=== PATIENT | female | born 1960 | race Caucasian/White ===

== ENCOUNTER 2016-12-07 16:58 | Inpatient (IN) | payer BC, OTHER ==
[~2016-12-07] VITALS: Ht 157.5 cm; Wt 77.1 kg
--- NOTE | 2016-12-07 18:00 | NUR ---
PREADMISSION NOTE 56 year old female admitted for ETOH dependence. Brought to unit at 1800. Allergy to PCN, reaction of rash. Drinks Vodka 16 oz per day for last 1.5 months, 2 beers a day x 1.5 months, daily drinker, drinking ETOH since age 12. Last detox September 17/2017, stayed 30 days. Blood pressure 109/59, pulse 103, RR 16, O2 sat 99 percent. No medical history. Surgical history of x 2, hysterectomy with ovaries removed, breast plastic surgery, deviated septum surgery of nose, gastric sleeve, tummy tuck. Psychiatric history of Depression and Anxiety x [address] Joaquín David, last seen 1 month ago. Home medications Atrovastatin, Lisinopril, Diazepam, Lexapro. No seizure history. Oriented to unit. Bed in low position, side rails up x 2, call rick in reach. 1900, report given to night RN.
[2016-12-07 18:34] LABS: *AMPHETAMINE, URINE NEGATIVE (NEGATIVE); *BARBITURATE, URINE NEGATIVE (NEGATIVE); *CANNABINOID, URINE NEGATIVE (NEGATIVE); *COCCAINE, URINE NEGATIVE (NEGATIVE); *OPIATE, URINE NEGATIVE (NEGATIVE); *PHENCYCLIDINE SCREEN,URINE NEGATIVE (NEGATIVE)
[2016-12-07 19:43] LABS: *URINE HCG, QUAL NEGATIVE (NEGATIVE)
[2016-12-07 20:00] VITALS: BP 117/62
--- NOTE | 2016-12-07 20:00 | NUR ---
Admission Notes Admitted a 56 y/o female in [facility] [place] Unit for ETOH dependence at approximately 1800H 12/07/2016. Body search done by PATTI Maddox, no contraband found. Skin is intact. Px is 5' 2" tall weighing at 170 lbs. on standing scale. Px is oriented on the floor unit and room. Px follows regular diet, allergic to penicillin, and on Full code status. Px is A&Ox4, ambulatory, with steady gait. Speech is clear and audible. Px appears to be anxious and depressed but cooperative. No SOB noted. Respirations are even and unlabored. Abdomen is soft and not distended. Last BM is 12/07/2016 in AM. Bowel sounds are active on all 4 quadrants. No N/V nor pain as of the moment. Px reported PMHx of anxiety, depression, thoughts of suicide 2weeks ago but no attempts made nor suicide thoughts at the moment. Had post surgical operations, 2 C-sections, tummy tuck, gastric sleeve, hysterectomy with oophorectomy, deviated septum surgery, and plastic surgery on breasts. Px able to provide urine for drug screen. CIWA 3 at 2000H. BG=651/62, NJ= 75, RR= 16, T= 98.3, O2sat= 98. Substance Abuse: 1. ETOH- px has been drinking Vodka for 14 years, Beer for 4 years. Px has been drinking 16 oz of Vodka and 4 bottles of beer daily for 1.5 months. Last drink is 12/07/2016 . Treatment Hx: 1. [facility] 4x but cant recall the dates 2. [facility] 3x, last was September 14, 2016 Px denies hospitalization for the past 30 days. Px longest sobriety is 9 months in 10 years. Px reports depression and heightened anxiety if she is not drinking. Px is non-smoker. Px refuses pneumonia vaccine, due to that she already received it this year but cant recall the date. Px's psychiatrist is Dr. Joaquín Martínez, and PCP is Dr. Yeh in [facility]. ETOH reveals 0.18 levels in labs. All needs attended. Fall and seizure precaution are in place. Both side rails up. Call light within reach. Well continue to monitor.
[2016-12-07 20:03] LABS: BASOPHILS # (AUTO) 0.1 K/uL (0.0-8.0); BASOPHILS % (AUTO) 1.2 % (0.0-2.0); EOSINOPHILS # (AUTO) 0.1 K/uL (0.0-0.7); EOSINOPHILS % (AUTO) 1.6 % (0.0-7.0); HEMATOCRIT 45.5 % (37-47); LYMPHOCYTES # (AUTO) 2.6 K/UL (0.8-4.8); LYMPHOCYTES % (AUTO) 48.6 % (20.5-51.5); MEAN CORPUSCULAR HEMOGLOBIN 31.7 UUG (27.0-31.0); MEAN CORPUSCULAR HGB CONC 33 g/dL (32.0-37.0); MEAN CORPUSCULAR VOLUME 96.1 FL (81.0-99.0); MONOCYTES # (AUTO) 0.4 K/UL (0.1-1.30); MONOCYTES % (AUTO) 6.4 % (0.0-11.0); NEUTROPHILS # (AUTO) 2.3 K/UL (1.8-8.9); NEUTROPHILS % (AUTO) 42.2 % (38.5-71.5); PLATELET COUNT (AUTO) 310 K/UL (150-450); RED BLOOD CELL COUNT(AUTO) 4.73 MIL/UL (4.2-5.4); WHITE BLOOD COUNT (AUTO) 5.5 K/UL (4.0-11.2)
[2016-12-07 20:20] LABS: BILIRUBIN,TOTAL 0.5 mg/dL (0.2-1.0); CREATININE 0.9 mg/dL (0.6-1.3); POTASSIUM 4.2 mmol/L (3.5-5.1); TOTAL PROTEIN, SERUM 7.3 g/dL (6.4-8.2)
[2016-12-08] VITALS: BP 120/63
[2016-12-08] MEDS ORDERED: LISI-603 PO (03:04)
[2016-12-08] MEDS ORDERED: DIAZ5TAB4 PO (03:04)
[2016-12-08] MEDS ORDERED: ATOR80TA PO (03:07)
[2016-12-08 04:00] VITALS: BP 118/60
--- NOTE | 2016-12-08 04:00 | NUR ---
CIWA deferred Px was sleeping at 0000 and 0400, CIWA assessment deferred, to assess if the px is awake per doctor's order. We'll continue to monitor.
--- NOTE | 2016-12-08 07:25 | NUR ---
End of Shift Notes A 56 y/o female admitted 12/07/2016 for ETOH dependence. Px follows regular diet, allergic to penicillin, and on Full code status. Px is A&Ox4, ambulatory, with steady gait. During the shift. No SOB noted. Respirations are even and unlabored. No N/V nor pain. Px appears to be anxious and depressed but cooperative. Oral intake of 1,100 ml, voided 3x, no BM. Slept for 9 hrs. Last CIWA 3. All needs attended. Fall and seizure precaution are in place. Both side rails up. Call light within reach. We'll continue to monitor.
--- NOTE | 2016-12-08 07:45 | NUR ---
BEGINNING OF SHIFT Patient is a 56 year old Female, with admitting Dx: etoh Dependence. Patient with past medical history of: Anxiety, depression, HTN, dyslipidemia, plastic surgeries, deviated septum surgery, hysterectomy, and oophorectomy. Patient received no PRNs during scene shifter. . Fall and seizure precautions in place. Patient skin is intact. Per scene shifter patient slept for 9 hours, Patient with last ciwa score of: 3. Patient is scheduled to begin a 4 day valium taper as ordered, and is scheduled to begin day 1 of taper. Patient received in bed awake, alert and oriented x4, educated patient regarding plan of care for the day and medication regimen with good verbal understanding. Safety measures in place. call light kept with in reach, will continue to monitor closely.
[2016-12-08 08:27] VITALS: BP 159/72
[2016-12-08 12:35] VITALS: BP 146/68
[2016-12-08 16:00] VITALS: BP 139/61
--- NOTE | 2016-12-08 17:01 | NUR ---
PRN MOTRIN Patient c/o back ache 09/20, provided with non pharmacological interventions with no relief, administered Motrin as ordered PO, will monitor effectiveness of medication.
--- NOTE | 2016-12-08 18:01 | NUR ---
MOTRIN REASSESSMENT Patient reports medication effective, current pain level 0/10, will continue to monitor.
--- NOTE | 2016-12-08 18:59 | NUR ---
END OF SHIFT Patient alert and oriented x4, patient compliant with therapeutic plan of care. vital signs were stable during shift. Patient continues on Valium taper as ordered and is currently on day 1 of taper, well tolerated, no ASE noted. Patient with admitting Dx: etoh dependence. During shift patient administered PPD as ordered to left f/a, well tolerated. 0900 assessment presented with: mild nausea, tremors that can be felt but not seen, barely sweating, restlessness, and anxiety; 1300 assessment patient presented with: tremors that can be felt but not seen, barely seating, mild restlessness, and anxiety with ciwa score of: 9; 1700 assessment patient presented with tremors that can be felt but not seen, barely sweating, and anxiety with ciwa score of: 4. Detox medication effective at reducing withdrawal symptom. Patient was administered PRN:Motrin as ordered, medication effective one hour post administration. Patient was encouraged to increase PO fluid intake as tolerated. Patient denies SI/HI. MD is aware of patients current status, continues under close observation. Patient endorsed to director electrical engineering nurse, all pertinent information discussed.
[2016-12-08 20:00] VITALS: BP 119/62
--- NOTE | 2016-12-08 20:00 | NUR ---
Start of Shift Notes Received a 56 y/o female admitted 12/07/2016 for ETOH dependence. Px follows regular diet, allergic to penicillin, and on Full code status. Px is A&Ox4, ambulatory, with steady gait. On 4 day Valium taper. During rounds at 2000, No SOB noted. Respirations are even and unlabored. No N/V nor pain. No complaints at the moment. CIWA 3. All needs attended. Fall and seizure precaution are in place. Both side rails up. Call light within reach. We'll continue to monitor.
[2016-12-09] VITALS: BP 121/68
[2016-12-09 04:00] VITALS: BP 139/66
--- NOTE | 2016-12-09 04:00 | NUR ---
CIWA deferred CIWA assessment deferred due to the px is sleeping, to assess if the px is awake per doctor's order. We'll continue to monitor.
[2016-12-09 06:06] LABS: HEPATITIS B SURFACE AG Negative (Negative)
--- NOTE | 2016-12-09 07:12 | NUR ---
End of Shift Notes A 56 y/o female admitted 12/07/2016 for ETOH dependence. Px follows regular diet, allergic to penicillin, and on Full code status. Px is A&Ox4, ambulatory, with steady gait. During the shift, No SOB noted. Respirations are even and unlabored. No N/V nor pain. Oral intake of 1,600 ml, voided 3x, No BM. Slept for 8 hrs. All needs attended. Fall and seizure precaution are in place. Both side rails up. Call light within reach. We'll continue to monitor.
[2016-12-09 08:00] VITALS: BP 144/65
--- NOTE | 2016-12-09 09:00 | NUR ---
START OF SHIFT Received report from milk drying machine operator nurse. Patient is 56 year old female admitted for medically supervised withdrawal from alcohol. Patient is full code with allergy to penicillin. On 5-Day valium taper. Patient is alert and oriented X4. On assessment this AM: CIWA: 2. Denies SOB, chest pain. Vitals signs WNL. Reports anxiety. Denies sweating, body ache/headache, nausea, vomiting, stomach cramping, tremors, tactile disturbance, auditory/visual hallucinations. Med compliant with AM meds. Tolerating breakfast without n/v at this time. Patient was encouraged to attend group meetings today. Will continue to monitor patient.
[2016-12-09 12:00] VITALS: BP 151/74
--- NOTE | 2016-12-09 12:48 | NUR ---
PRN CLONIDINE Patient's BP: 151/74 (HR 67). PRN clonidine given. Will continue to monitor patient.
--- NOTE | 2016-12-09 13:48 | NUR ---
REASSESSMENT PRN CLONIDINE Patient's BP 128/73, HR 74, med effective.
[2016-12-09 16:00] VITALS: BP 117/65
--- NOTE | 2016-12-09 18:56 | NUR ---
END OF SHIFT Patient is 56 year old female admitted for medically supervised withdrawal from alcohol. Patient is full code with allergy to penicillin. On 5-Day valium taper. Patient is alert and oriented X4. Most recent CIWA:1. Patient reports anxiety. Compliant with routine meds during this shift. PRN clonidine given for elevated BP (151/74), recheck 128/73, HR 74, effective. Patient tolerating meals without. n/v. Patient attended group activities. warehouse shift supervisor RN will continue to monitor patient.
[2016-12-09 20:00] VITALS: BP 106/48
--- NOTE | 2016-12-09 20:00 | NUR ---
Start of Shift Patient is a 56-year old, female, admitted for ETOH dependence. Pt is allergic to Penicillin, on Regular Diet and is Full Code. With history of Anxiety, Depression, Hyperlipidemia, Hypertension, , Gastric Sleeve, Hysterectomy and Tummy Tuck. Pt is AAOx4 and with slight anxiety at this time. Pt is ambulatory with steady gait and with no skin issues. Pt started on 4-day Valium taper on 12/08/2016.No adverse reactions observed. No SOB noted, not in respi distress. Fall, universal, seizure and safety prec in place. Call light within reach. Latest CIWA=3. Will continue to monitor.
[2016-12-10] VITALS: BP 91/56
[2016-12-10 04:00] VITALS: BP 100/62
--- NOTE | 2016-12-10 07:07 | NUR ---
End of Shift Patient is a 56-year old, female, admitted for ETOH dependence. Pt is allergic to Penicillin, on Regular Diet and is Full Code. With history of Anxiety, Depression, Hyperlipidemia, Hypertension, , Gastric Sleeve, Hysterectomy and Tummy Tuck. Pt is AAOx4 and with slight anxiety at this time. Pt is ambulatory with steady gait and with no skin issues. Pt started on 4-day Valium taper on 12/08/2016.No adverse reactions observed. No SOB noted, not in respi distress. Fall, universal, seizure and safety prec in place. Call light within reach. Latest CIWA=2, slept for 7 hours. Endorsed to AM shift nurse for continuity of care.
--- NOTE | 2016-12-10 07:30 | NUR ---
Start of shift note; Received report from night nurse. Patient is a56 year old female admitted on 12/07/16 for ETOH dependence. Patient was placed on a 4 day Valium taper , no adverse reactions noted. Patient reported anxiety, hypertension, gastric sleeve. Patient is on full code, regular diet, allergic to penicillin. Patient is on fall and seizure precaution. Will continue to monitor patient.
[2016-12-10 08:00] VITALS: BP 118/61
[2016-12-10 12:00] VITALS: BP 109/63
[2016-12-10 16:00] VITALS: BP 100/62
--- NOTE | 2016-12-10 18:26 | NUR ---
End of shift note; Patient is AOX4. Patient is a 56 year old female admitted on 12/07/16 for ETOH dependence. Patient was placed on a 4 day Valium taper , no adverse reactions noted. Patient reported anxiety, hypertension, gastric sleeve. Patient is on full code, regular diet, allergic to penicillin. Patient is on fall and seizure precaution. Patient remained compliant with treatment plan and medication regime. Medications were effective in reducing withdrawal symptoms. Met all needs.
[2016-12-10 20:00] VITALS: BP 97/56
--- NOTE | 2016-12-10 20:00 | NUR ---
Start of Shift Patient is a 56-year old, female, admitted for ETOH dependence. Pt is allergic to Penicillin, on Regular Diet and is Full Code. With history of Anxiety, Depression, Hyperlipidemia, Hypertension, , Gastric Sleeve, Hysterectomy and Tummy Tuck. Pt is AAOx4 and with slight anxiety at this time. Pt is ambulatory with steady gait and with no skin issues. Pt started on 4-day Valium taper on 12/08/2016.No adverse reactions observed. No SOB noted, not in respi distress. Fall, universal, seizure and safety prec in place. Call light within reach. Latest CIWA=4. Will continue to monitor.
[2016-12-11] VITALS: BP 102/58
[2016-12-11 04:00] VITALS: BP 106/65
--- NOTE | 2016-12-11 07:07 | NUR ---
End of Shift Patient is a 56-year old, female, admitted for ETOH dependence. Pt is allergic to Penicillin, on Regular Diet and is Full Code. With history of Anxiety, Depression, Hyperlipidemia, Hypertension, , Gastric Sleeve, Hysterectomy and Tummy Tuck. Pt is AAOx4 and with slight anxiety at this time. Pt is ambulatory with steady gait and with no skin issues. Pt started on 4-day Valium taper on 12/08/2016.No adverse reactions observed. No SOB noted, not in respi distress. Fall, universal, seizure and safety prec in place. Call light within reach. Latest CIWA=3, slept for 9 hours. Endorsed to AM shift nurse for continuity of care.
--- NOTE | 2016-12-11 07:10 | NUR ---
Start of shift note SBAR report rcv'd. Pt was admitted for ETOH dependence. Pt has a PMHx of anxiety, depression, HTN, dyslipidemia, and multiple surgeries. Pt is a full code, on a regular diet, is allergic to PCN. Pt is on day 3 of a 4 day valium taper. Pt has no complaints at this time. Will continue to monitor pt. All needs addressed at this time.
[2016-12-11 08:00] VITALS: BP 109/71
--- NOTE | 2016-12-11 08:05 | NUR ---
PRN administration, medication refusal Pt states that she has a headache 06/21, administered PRN motrin per MD order. Pt refused norvasc, states "it makes me feel weird". Medication held. Will continue to monitor pt.
--- NOTE | 2016-12-11 09:05 | NUR ---
Reassessment Pt states that the motrin was effective in alleviating her headache. Will continue to monitor pt.
[2016-12-11 12:00] VITALS: BP 114/60
--- NOTE | 2016-12-11 14:28 | NUR ---
Endorsement Pt endorsed to RN. Pt has no complaints at this time.
--- NOTE | 2016-12-11 14:28 | NUR ---
ENDORSEMENT Pt endorsed to me by nurse. All information received.
[2016-12-11 16:55] VITALS: BP 117/62
--- NOTE | 2016-12-11 18:30 | NUR ---
END OF SHIFT Pt 56 y/o female admitted for etoh dependence. Pt alert and oriented to name, place,and time. Perrla. Skin warm and slightly moist to touch. Respirations even and unlabored. Pt observed mostly in room throughout the day. Pt attended group activity. Pt was seen by MD today. Pt medication compliant and tolerated well. No ASE noted. Bed on lowest position with side rails x2 up for safety. Call light within reach. No distress noted at this time.
--- NOTE | 2016-12-11 19:10 | NUR ---
Start of shift note Received report from day shift nurse. Pt is a 56 yo female, A+Ox4, presenting to [facility] for ETOH dependence. Pt has Allergies to PCN, is on Full Code status, and on Regular diet. Pt is on Fall and Seizure precautions. Pt has HX of HTN, multiple cosmetic SX's, and Hysterectomy. Pt is on 5 day Valium taper, tolerated well. No s/s of distress noted at this time. Respirations even and unlabored. Will continue to monitor. Addendum: 12/12/16 at 0703 by FRED JOEL LVN 4 day Valium taper
[2016-12-11 20:19] VITALS: BP 117/62
--- NOTE | 2016-12-12 00:10 | NUR ---
PRN Motrin Pt c/o general body pain 5/10 and requested for PRN Motrin. Medication given and tolerated well. Will reassess within 1 HR. Will continue to monitor.
[2016-12-12 00:57] VITALS: BP 115/68
--- NOTE | 2016-12-12 01:05 | NUR ---
PRN Motrin Reassessment Medication effective. Pain reduced to 2/10. No s/s of ASE/distress noted at this time. Respirations even and unlabored. Will continue to monitor.
[2016-12-12 04:01] VITALS: BP 118/72
--- NOTE | 2016-12-12 06:59 | NUR ---
End of shift note Pt is a 56 yo female, A+Ox4, presenting to [facility] for ETOH dependence. Pt has Allergies to PCN, is on Full Code status, and on Regular diet. Pt is on Fall and Seizure precautions. Pt has HX of HTN, multiple cosmetic SX's, and Hysterectomy. Pt is on 5 day Valium taper, tolerated well. Pt was given PRN Motrin @0010. Pt slept for a total of 8 HRS. Last CIWA: 2 @0400. No s/s of distress noted at this time. Respirations even and unlabored. Will endorse to day shift nurse. Addendum: 12/12/16 at 0703 by FRED JOEL LVN 4 day Valium taper
--- NOTE | 2016-12-12 07:47 | NUR ---
START OF SHIFT NOTE Received report from night nurse,56 year old female admitted for ETOH dependence. Pt reported PMH of 2 C-sections, tummy tuck, gastric sleeve, hysterectomy with oophorectomy, deviated septum surgery, and plastic surgery on breasts, HTN. Per endorsement pt received PRN Motrin effective per night nurse, slept for 8 hours, Last CIWA was 2. Received pt in bed awake, alert and oriented x4, educated patient regarding plan of care for the day and medication regimen with good verbal understanding. Safety measures in place. call light kept with in reach, will continue to monitor.
[2016-12-12 08:00] VITALS: BP 138/71
[2016-12-12 12:00] VITALS: BP 134/60
[2016-12-12] MEDS ORDERED: LISI-603 PO (15:27)
[2016-12-12] MEDS ORDERED: DIPH50CA37 PO (15:27)
[2016-12-12] MEDS ORDERED: ESCI10TA PO (15:27)
[2016-12-12] MEDS ORDERED: BACL20TA PO (15:27)
[2016-12-12] MEDS ORDERED: CHOL10002 PO (15:27)
[2016-12-12 16:00] VITALS: BP 118/64
--- NOTE | 2016-12-12 19:27 | NUR ---
END OF SHIFT NOTE Patient alert and oriented x4, vital signs were stable during shift. Patient compliant with therapeutic plan of care. Patient completed 5 day Valium taper as ordered, well tolerated, no ASE noted. Pt scheduled for discharge in AM. Patient encouraged adequate PO fluid intake as tolerated. Patient encouraged to attend group therapies/sessions to learn new coping skills. Pt noted attending and participating, patient denies SI/HI. Pt ate all of his meals his total fluid intake was 2391ml with 5 void and 1 bowel movement ,no PRN medications were administered during shift. Last CIWA-2 at 1600. Safety measures in place. Call light kept within reach. Patient endorsed to night court magistrate nurse in stable condition.
--- NOTE | 2016-12-12 19:28 | NUR ---
Start of shift note Received report from day shift nurse. Pt is a 56 yo female, A+Ox4, presenting to [facility] for ETOH dependence. Pt has Allergies to PCN, is on Full Code status, and on Regular diet. Pt is on Fall and Seizure precautions. Pt has HX of HTN, multiple cosmetic SX's, and Hysterectomy. Pt has completed 4 day Valium taper, tolerated well, and is due for discharge tomorrow. No s/s of distress noted at this time. Respirations even and unlabored. Will continue to monitor.
[2016-12-12 20:18] VITALS: BP 115/68
[2016-12-13 00:16] VITALS: BP 112/71
[2016-12-13 04:18] VITALS: BP 115/74
--- NOTE | 2016-12-13 07:00 | NUR ---
End of shift note Pt is a 56 yo female, A+Ox4, presenting to [facility] for ETOH dependence. Pt has Allergies to PCN, is on Full Code status, and on Regular diet. Pt is on Fall and Seizure precautions. Pt has HX of HTN, multiple cosmetic SX's, and Hysterectomy. Pt has completed 4 day Valium taper, tolerated well, and is due for discharge today. Pt slept for a total of 8 HRS. Last CIWA: 2 @0400. No s/s of distress noted at this time. Respirations even and unlabored. Will endorse to day shift nurse.
--- NOTE | 2016-12-13 07:36 | NUR ---
START OF SHIFT NOTE Received report from night nurse,56 year old female admitted for ETOH dependence. Pt reported PMH of 2 C-sections, tummy tuck, gastric sleeve, hysterectomy with oophorectomy, deviated septum surgery, and plastic surgery on breasts, HTN. Per endorsement pt did not received any PRN'S slept for 8 hours, Last CIWA was 2. Received pt in bed awake, alert and oriented x4, educated patient regarding plan of care for the day and medication regimen with good verbal understanding. Safety measures in place. call light kept with in reach, will continue to monitor.
[2016-12-13 08:00] VITALS: BP 119/70
--- NOTE | 2016-12-13 10:00 | NUR ---
DISCHARGE NOTE Pt is alert awake oriented x4 in stable condition. Vital signs WNL,Skin intact, Pt denies any SI/HI ideations. All discharge paperwork completed dated and signed. Pt educated about discharge instructions,Pt verbalized understanding. Pt;s last CIWA was-1. Pt discharged from [facility] on 12/13/16, at 1000. Pt left the building with all of her belongings and prescriptions and the medications she brought with her from home. has been contracted and notified of pt's discharge.
== END 2016-12-13 10:00 | disposition other institution (70) | DRG 895 ==
LOC: SRC 16:58
PROVIDERS: ADMIT Internal Medicine; ATTEND Internal Medicine
PROC: HZ2ZZZZ Detoxification Services for Substance Abuse Treatment (ICD-10-PCS; principal; 2016-12-07)
PROC: HZ41ZZZ Group Counseling for Substance Abuse Treatment, Behavioral (ICD-10-PCS; 2016-12-08)
PROC: HZ31ZZZ Individual Counseling for Substance Abuse Treatment, Behavioral (ICD-10-PCS; 2016-12-10)
DX: F10.232 Alcohol dependence with withdrawal with perceptual disturbance (principal); I10 Essential (primary) hypertension; F13.232 Sedative, hypnotic or anxiolytic dependence with withdrawal with perceptual disturbance; Y90.9 Presence of alcohol in blood, level not specified; Z81.1 Family history of alcohol abuse and dependence; F41.9 Anxiety disorder, unspecified; G43.909 Migraine, unspecified, not intractable, without status migrainosus; E78.5 Hyperlipidemia, unspecified; R73.9 Hyperglycemia, unspecified; F32.9 Major depressive disorder, single episode, unspecified; E55.9 Vitamin D deficiency, unspecified
CPT/HCPCS: 36415; 70030-TC; 80307; 83735; 84703; 85025; 86580; 86592; 86705; 86803; 87340; 87806; A4663; G0480; J3411

== ENCOUNTER 2017-11-14 12:51 | Inpatient (IN) | payer BC, OTHER ==
[~2017-11-14] VITALS: Ht 157.5 cm; Wt 83.9 kg
[~2017-11-14 12:51] MED LIST: ATOR80TA PO; BACL20TA PO; CHOL10002 PO; DIPH50CA37 PO; ESCI10TA PO; LISI-603 PO
--- NOTE | 2017-11-14 14:36 | NUR ---
Pre-assessment note: assessed pt in intake office, pt is moderately intoxicated verbalized she drank 2 hours ago once she got a car. pt is being admitted for ETOH WITHDRAWAL/DEPENDENCE. pt's V/s are 119/63, 72, 95% 16. pt appears to be compliant, emotional, unkempt, odorous of alcohol, and without any eye contact. yet able to give somewhat of an accurate history explained unit protocols and procedures and pt verbalized understanding.
--- NOTE | 2017-11-14 14:41 | NUR ---
Admission note: Pt is a 57 year old female, admitted to [facility] for ETOH withdrawal/dependence. pt was on the unit at 1441. luggage and skin check done and assisted by RN. pt did not want weight said out loud when being weighed and said I'm a disgusting pig please say it in private. Pt is currently moderately intoxicated and verbalized i drank 2 hours prior to coming in as soon as there was a car available. pt appears unkept, anxious and with loose ideas of what needs to be done prior to being admitted. Pt states I'm OK now but ill probably be sick later, i usually get really anxious, depressed, emotional, headaches and flushed when I'm not drinking. while interviewing pt she is tearful and happy she is here to get help. when asked why come in today she verbalized " I can't do this anymore, I don't feel good, I'm very very depressed and I don't want to loss my job". Pt states she does not have any seizure history but blacks out a few times when shes drinks, she also verbalized she probably blacked out last night she can't recall. pt verbalized she was here last year around the same time, but never really stayed sober, in pt's on words " sober to me is having 2 beers a day and that's not really drinking to me" pt said from November to April she was "sober" she then went to [facility] for Detox in April this year for 7 days. Pt verbalizes this past week since she has been drinking Vodka 8 oz daily and a 12 pack of beer daily, compared to the 2 beers shes been drinking daily. 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 she currently lives with her parents and it makes her very depressed. her 2 children are grown and don't need to be worried about. Medical hx: hypertension hypercholesteremia anxiety depression. PCP is Dr. Fabrice Gomez and Psychiatrist is Dr. Joaquín Brennan and home medications she takes are Hdroxyzine 25 mg, imitrex and campral. Pt was oriented to unit and was provided with informational handouts. unit protocols and procedures were discussed and taught, pt verbalized understanding.
[2017-11-14] MEDS ORDERED: ONDANSETRON 4 MG/2 ML VIAL IM PRN (15:15)
[2017-11-14] MEDS ORDERED: LOPERAMIDE HCL 2 MG CAPSULE PO PRN ×2 (15:15)
[2017-11-14] MEDS ORDERED: ACETAMINOPHEN 325 MG TABLET PO PRN (15:15)
[2017-11-14] MEDS ORDERED: ONDANSETRON ODT 4 MG TAB.RAPDIS SL PRN (15:15)
[2017-11-14] MEDS ORDERED: DIAZEPAM 10 MG TABLET PO PRN (15:15)
[2017-11-14] MEDS ORDERED: MIRALAX 17 GM POWD.PACK PO PRN (15:15)
[2017-11-14] MEDS ORDERED: MAGNESIUM HYDROXIDE 30 ML LIQUID UDC PO PRN (15:15)
[2017-11-14] MEDS ORDERED: DICYCLOMINE HCL 20 MG TABLET PO PRN (15:15)
[2017-11-14] MEDS: CHOLECALCIFEROL 1,000 UNIT TABLET PO SCH (15:15)
[2017-11-14] MEDS ORDERED: THIAMINE HCL 200 MG/2 ML VIAL IM ONE (15:15)
[2017-11-14] MEDS ORDERED: DIAZEPAM 5 MG TABLET PO PRN (15:15)
[2017-11-14] MEDS ORDERED: MAG HYDROX/AL HYDROX/SIMETH 30 ML LIQUID UDC PO PRN (15:15)
[2017-11-14 16:01] LABS: BILIRUBIN,TOTAL 0.4 mg/dL (0.2-1.0); CREATININE 0.7 mg/dL (0.6-1.3); POTASSIUM 3.4 mmol/L (3.5-5.1); TOTAL PROTEIN, SERUM 6.9 g/dL (6.4-8.2)
[2017-11-14 16:02] LABS: BASOPHILS # (AUTO) 0.1 K/uL (0.0-8.0); BASOPHILS % (AUTO) 0.9 % (0.0-2.0); EOSINOPHILS # (AUTO) 0.3 K/uL (0.0-0.7); EOSINOPHILS % (AUTO) 4.3 % (0.0-7.0); HEMATOCRIT 40.6 % (31.2-41.9); LYMPHOCYTES # (AUTO) 2.6 K/uL (20.0-40.0); LYMPHOCYTES % (AUTO) 43.1 % (20.5-51.5); MEAN CORPUSCULAR HEMOGLOBIN 33.8 uug (24.7-32.8); MEAN CORPUSCULAR HGB CONC 35 g/dL (32.3-35.6); MEAN CORPUSCULAR VOLUME 97.8 fL (75.5-95.3); MONOCYTES # (AUTO) 0.4 K/uL (2.0-10.0); MONOCYTES % (AUTO) 6.6 % (0.0-11.0); NEUTROPHILS # (AUTO) 2.7 K/uL (1.8-8.9); NEUTROPHILS % (AUTO) 45.1 % (38.5-71.5); PLATELET COUNT (AUTO) 276 K/uL (179-408); RED BLOOD CELL COUNT(AUTO) 4.15 MIL/uL (3.63-4.92); WHITE BLOOD COUNT (AUTO) 6.1 K/uL (3.8-11.8)
[2017-11-14 16:31] LABS: *AMPHETAMINE, URINE NEGATIVE (NEGATIVE); *BARBITURATE, URINE NEGATIVE (NEGATIVE); *CANNABINOID, URINE NEGATIVE (NEGATIVE); *COCCAINE, URINE NEGATIVE (NEGATIVE); *OPIATE, URINE NEGATIVE (NEGATIVE); *PHENCYCLIDINE SCREEN,URINE NEGATIVE (NEGATIVE)
[2017-11-14] MEDS: IBUPROFEN 400 MG TABLET PO PRN (18:09)
[2017-11-14] MEDS: DIAZEPAM 10 MG TABLET PO PRN (18:10)
--- NOTE | 2017-11-14 19:00 | NUR ---
end of shift note: pt started withdrawing noted with a ciwa of 13 pt is odarous of alcohol pt appears flushed and tremolous. valium 10 mg and motrin were administered police shift commander nurse will re-assess effectiveness of medication. pt is [facility] withdrawal/dependence.
--- NOTE | 2017-11-14 19:00 | NUR ---
Start of shift note Received report from day shift nurse. Patient is a 57 year old female admitted for ETOH withdrawal. Patient was placed on 3 day Valium taper, to start tomorrow. Patient was give PRN Valium and Motrin. Last CIWA 17. Patient presents with flat affect, depressed mood, anxious, bilateral hand tremors, intermittent perspiration, mild sensitivity to light and sound and headache. Encourage fluid. Safety measures in place. Call light in reach. Will continue to monitor.
--- NOTE | 2017-11-14 19:10 | NUR ---
PRN Valium and Motrin re-assessment Patient states she feels much better, she's less anxious and pain lessened. CIWA 12.
[2017-11-14 20:00] VITALS: BP 124/60
--- NOTE | 2017-11-14 20:00 | NUR ---
CIWA assessment Patient anxious, bilateral hand tremors, intermittent perspiration, mild sensitivity to light and sound and headache. CIWA 10
[2017-11-14] MEDS: LISINOPRIL 20 MG TABLET PO SCH (20:24)
[2017-11-14] MEDS: ATORVASTATIN 40 MG TABLET PO SCH (20:24)
[2017-11-14] MEDS ORDERED: POTASSIUM CHLORIDE 20 MEQ TAB.PRT.SR PO ONE (20:30)
--- NOTE | 2017-11-14 20:30 | NUR ---
Additional PMH Patient states she has PMH of sleep apnea and uses C-PAP machine at bedtime
[2017-11-14] MEDS ORDERED: Medication Not On Formulary EA (Atorvastatin Calcium (Lipitor) 80 MG) PO SCH (21:00)
--- NOTE | 2017-11-14 22:10 | NUR ---
CPAP order received. No respiratory distress noted at this time. Attempted to place pt on CPAP, pt did not tolerate mask well. States she doesn't want to be on CPAP for the night. RN at bedside, aware pt doesn't want CPAP.
[2017-11-14] MEDS: diphenhydrAMINE 50 MG CAPSULE PO PRN (22:25)
--- NOTE | 2017-11-14 22:25 | NUR ---
PRN Benadryl administration Patient requests for sleep aid. Will monitor for effectiveness
[2017-11-15] VITALS: BP 109/62
--- NOTE | 2017-11-15 | NUR ---
CIWA assessment/Benadryl re-assessment Patient awake, anxious , restless and difficulty sleeping. Benadryl ineffective. Will continue to monitor. CIWA 13.
[2017-11-15] MEDS: DIAZEPAM 10 MG TABLET PO PRN (00:21)
--- NOTE | 2017-11-15 00:21 | NUR ---
PRN Valium administration Patient anxious, restless, irritable, sweating, tremors and difficulty sleeping. CIWA 13.
--- NOTE | 2017-11-15 01:21 | NUR ---
PRN Valium re-assessment Patient lying in bed with eyes closed. Respiration even and unlabored. Will continue to monitor.
[2017-11-15 04:00] VITALS: BP 104/56
--- NOTE | 2017-11-15 07:12 | NUR ---
End of shift Patient slept 7 hours. Fluid intake 1,043 ml. Voided x 2. BM x 1. Monitored patient throughout shift. Patient presented with flat affect, depressed mood, anxious, bilateral hand tremors, intermittent perspiration, mild sensitivity to light and sound and headache. Scheduled medication given as ordered. PRN Benadryl for sleep given , ineffective. At 0000, Patient was anxious, restless and had difficulty sleeping. PRN Valium given at 0021. CIWA was 13. Encourage fluid. Patient states she had Sleep apnea, added to PMH. She uses C-PAP at bedtime. Dr. Narayan was made aware. Hospital C-PAP was provided and was set up by RT, but does not want to use it , per patient its too bulky. C-PAP in the room if patient decided to use it. Safety measures in place. Call light in reach. Will continue to monitor. Last CIWA 13.
--- NOTE | 2017-11-15 07:50 | NUR ---
START OF SHIFT NOTE Received report from night nurse, patient is 57 year old female admitted for ETOH withdrawal and continues with Valium taper tolerating well. Per endorsement patient received PRN Benadryl and Valium effective per night nurse, slept for 7 hours and last CIWA score was 13. Per endorsement patient reported PMH of sleep apnea and refused to use C-PAP which is at bed side. Received patient alert awake oriented x4 with labile facial expression, anxious, agitated, bilateral hand tremors. Patient is due for scheduled medications. All safety measures in place, Call light within reach. Will cont to monitor.
[2017-11-15 08:00] VITALS: BP 146/76
[2017-11-15] MEDS: DIAZEPAM 10 MG TABLET PO SCH ×2 (08:32→20:19)
[2017-11-15] MEDS: MULTIVITAMINS,THERAPEUTIC TABLET PO SCH (08:32)
[2017-11-15] MEDS: CHOLECALCIFEROL 1,000 UNIT TABLET PO SCH (08:32)
--- NOTE | 2017-11-15 08:32 | NUR ---
CIWA ASSESSMENT Patient is anxious, agitated, restless, bilateral hand tremors, sweats, light headed. CIWA score noted 11. Patient is given scheduled medications. Will cont to monitor.
[2017-11-15] MEDS ORDERED: TUBERCULIN,PURIF.PROT.DERIV. 5 TU/0.1 ML TEST ID ONE (09:00)
[2017-11-15 12:00] VITALS: BP 128/60
--- NOTE | 2017-11-15 12:00 | NUR ---
CIWA ASSESSMENT Patient continues to exhibited s/s of withdrawal such as anxious, agitated, restless, bilateral hand tremors, sweats, per patient light headed decreased. CIWA score noted 10. Encourage patient to use distraction such as watching TV, reading books, patient verbalized understanding. Will cont to monitor.
[2017-11-15 14:11] LABS: HEPATITIS B SURFACE AG Negative (Negative)
--- NOTE | 2017-11-15 14:52 | NUR ---
Therapist prompted client to attend group therapy.
[2017-11-15 16:00] VITALS: BP 146/79
--- NOTE | 2017-11-15 16:00 | NUR ---
CIWA ASSESSMENT CIWA score noted 9. Patient continues to exhibited s/s of withdrawal such as anxious, agitated, restless, bilateral hand tremors, sweats, per patient light headed decreased. Encourage patient to use distraction such as coloring books, reading books, patient verbalized understanding. Will cont to monitor.
--- NOTE | 2017-11-15 19:14 | NUR ---
END OF SHIFT NOTE Gave report to night nurse, 57 year old female admitted for ETOH withdrawal. Patient started with Valium taper tolerating well. Patient presented with anxiety, agitation, restless, bilateral hand tremors, unkempt, anhedonia, empty bottles on the floor noted. Patient was given her scheduled medications and did not require any PRN. Patient did not attend any group activity, encourage patient to attend groups and activities to learn new coping skills with good verbal understanding. Last CIWA score was -9. All safety measures in place, call light within reach. Patient endorse to night nurse in stable condition.
--- NOTE | 2017-11-15 19:15 | NUR ---
Start Of Shift Patient is a 57 yr old female who was admitted to [facility] on 11/14/17 for a medically supervised withdrawal from ETOH, she has been placed on a 3 day Ativan taper and this is day 1. No PRN medications were required or requested on day shift. Her last CIWA was 9. Currently she is awake in her room sitting on the chair, she voices no concerns at this time, continue to follow MD plan of care and offer support and encouragement.
[2017-11-15 20:00] VITALS: BP 154/73
--- NOTE | 2017-11-15 20:00 | NUR ---
BONNY 13 Withdrawal symptoms present as headache, fine bilateral hand tremors, bilateral feet edema, chills/diaphoresis, anxiety and restlessness. Scheduled Valium 10mg Po to be given along with PRN Motrin and Benadryl
[2017-11-15] MEDS: IBUPROFEN 400 MG TABLET PO PRN (20:19)
[2017-11-15] MEDS: LISINOPRIL 20 MG TABLET PO SCH (20:19)
[2017-11-15] MEDS: diphenhydrAMINE 50 MG CAPSULE PO PRN (20:19)
[2017-11-15] MEDS: ATORVASTATIN 40 MG TABLET PO SCH (20:20)
--- NOTE | 2017-11-15 20:20 | NUR ---
PRN Motrin 600mg PO given for headache 06/21 Benadryl 50mg PO given per request for sleep aid
--- NOTE | 2017-11-15 21:20 | NUR ---
PRN Reassess Patient states that Motrin was effective, headache now 2/10 Benadryl effective, patient states she feels drowsy will cont to monitor
--- NOTE | 2017-11-16 | NUR ---
CIWA/VITALS Deferred due to patient request to please sleep through the night uninterrupted, breathing even and unlabored, RR 14, call light within reach
--- NOTE | 2017-11-16 04:00 | NUR ---
CIWA/VITALS Deferred due to patient request to please sleep through the night uninterrupted, breathing even and unlabored, RR 14, call light within reach
--- NOTE | 2017-11-16 06:58 | NUR ---
End of Shift: Patient is a 57 yr old female who was admitted to [facility] on 11/14/17 for a medically supervised withdrawal from ETOH ( Vodka/Beer), she has been place on a 3 day Valium taper. PRN medications given on PM shift : Motrin and Benadryl. Patient states that she uses a CPAP machine at home and that the one given to her here at the hospital to use does not work for her, the face mask is too uncomfortable and she states she cannot sleep comfortably with it on. Her withdrawal symptoms include fine bilateral hand tremors, restlessness, increased anxiety, headache, diaphoresis, chills and depression. She had a fluid intake of 500ML, 1Voids and 0BM, her last CIWA was 13 @ 8pm and she slept for 9 hours. Continue to follow MD plan of care and offer support as needed. Endorsed to day shift nurse.
[2017-11-16 07:38] LABS: CREATININE 0.8 mg/dL (0.6-1.3); POTASSIUM 4.1 mmol/L (3.5-5.1)
--- NOTE | 2017-11-16 07:40 | NUR ---
START OF SHIFT NOTE Received report from night nurse, patient is 57 year old female admitted for ETOH withdrawal and continues with Valium taper tolerating well. Per endorsement patient received PRN Benadryl and Motrin effective per night nurse, slept for 9 hours and last CIWA score was 13. Received patient awake anxious, agitated, bilateral hand tremors, sweats, unkempt, anhedonia. Patient is due for scheduled medications. All safety measures in place, Call light within reach. Will cont to monitor.
[2017-11-16 08:00] VITALS: BP 142/75
[2017-11-16] MEDS: CHOLECALCIFEROL 1,000 UNIT TABLET PO SCH (08:21)
[2017-11-16] MEDS: DIAZEPAM 5 MG TABLET PO SCH ×3 (08:21→20:03)
[2017-11-16] MEDS: MULTIVITAMINS,THERAPEUTIC TABLET PO SCH (08:21)
[2017-11-16] MEDS: ESCITALOPRAM OXALATE 10 MG TABLET PO SCH (08:21)
--- NOTE | 2017-11-16 08:21 | NUR ---
CIWA ASSESSMENT CIWA score noted 11. Patient is anxious, agitated, restless, bilateral hand tremors, sweats, Patient is given scheduled medications. Will cont to monitor.
--- NOTE | 2017-11-16 09:42 | NUR ---
Therapist prompted client to attend twice daily group therapy sessions.
[2017-11-16 13:00] VITALS: BP 151/73
--- NOTE | 2017-11-16 14:00 | NUR ---
CIWA REASSESSMENT CIWA score noted 12. Patient reported anxiety, agitation, restless, bilateral hands tremors. Patient is due for schedule medications. Will cont to monitor.
[2017-11-16 16:00] VITALS: BP 150/74
--- NOTE | 2017-11-16 16:00 | NUR ---
CIWA REASSESSMENT CIWA score noted 11. Patient exhibited s/s of withdrawal anxiety, agitation, restless, bilateral hands tremors, fatigue. Will cont to monitor.
--- NOTE | 2017-11-16 19:09 | NUR ---
END OF SHIFT NOTE Gave report to night nurse, 57 year old female admitted for ETOH withdrawal. Patient continues with Valium taper tolerating well. Patient presented with anxiety, agitation, restless, bilateral hand tremors. Patient was given her scheduled medications and did not receive any PRN. Patient did not attend any group activity, however patient was active and walked around the unit. Encourage patient to attend groups and activities to learn new coping skills with good verbal understanding. Last CIWA score was -11. All safety measures in place, call light within reach. Patient endorse to night nurse in stable condition.
--- NOTE | 2017-11-16 19:11 | NUR ---
Start of shift note Received report from day shift nurse. Pt is a 57 yo female, A+Ox4, presenting to [facility] for medically supervised ETOH withdrawal. Pt noted with restlessness, anxiety, and agitation. Pt has HX of HTN, Hyperlipidemia, sleep apnea, anxiety, and depression which will be monitored during shift. Pt is on 3 day Valium taper, tolerated well. Respirations even and unlabored. Will continue to monitor.
[2017-11-16] MEDS: ATORVASTATIN 40 MG TABLET PO SCH (20:03)
[2017-11-16] MEDS: LISINOPRIL 20 MG TABLET PO SCH (20:03)
[2017-11-16 20:11] VITALS: BP 162/79
--- NOTE | 2017-11-16 20:11 | NUR ---
CIWA Assessment CIWA: 10. Pt noted with fine tremors, sweat on brow, anxiety, and agitation. Respirations even and unlabored. Will continue to monitor.
[2017-11-16] MEDS: IBUPROFEN 400 MG TABLET PO PRN (20:13)
--- NOTE | 2017-11-16 20:13 | NUR ---
PRN Motrin Pt c/o headache 08/21 and requested for PRN Motrin. Medication given and tolerated well. Will reassess within 1 HR. Will continue to monitor.
--- NOTE | 2017-11-16 21:10 | NUR ---
PRN Motrin Reassessment Medication effective. Pt expresses reduction of headache to 3/10. No s/s of ASE noted at this time. Respirations even and unlabored. Will continue to monitor.
--- NOTE | 2017-11-17 00:16 | NUR ---
V/S refused and CIWA deferred for sleep. Respirations even and unlabored. Will continue to monitor.
--- NOTE | 2017-11-17 04:15 | NUR ---
V/S refused and CIWA deferred for sleep. Respirations even and unlabored. Will continue to monitor.
--- NOTE | 2017-11-17 07:00 | NUR ---
End of shift note Pt was continuously noted with anxiety, agitation, and restlessness. Pt remained in room for entire shift. Pt remained compliant and cooperative with all aspects of treatment. Pt was given PRN Yanna @2012. Pt is on 3 day Valium taper, tolerated well. Pt slept for a total of 10 HRS. Last CIWA: 10 @2010. Respirations even and unlabored. Will endorse to day shift nurse.
[2017-11-17 08:00] VITALS: BP 141/68
--- NOTE | 2017-11-17 08:00 | NUR ---
Start of Shift Notes: Received patient in her room. She appears disheveled and unkempt. She appears sedated upon waking up. Denies S/I or H/I noted. No AV hallucinations. She appears anxious, agitated. Gross tremors noted to BUE and sweating also noted. She complains of 5/10 headache. CIWA 14 upon assessment. Patient is a 57 year old female admitted for ETOH withdrawal who was placed on a 3-day Valium taper as ordered. No adverse reactions noted. Educated patient on her current plan of care for the day and her medication regimen. Encouraged oral fluid intake and encouraged group participation to learn new skills to prevent relapse. Per night report, patient was given PRN Motrin for headache and refusing CPAP. Last CIWA 10. Slept for 10 hours. Will continue to monitor closely and encouraged shower. Addendum: 11/17/17 at 1003 by GRACIE MASON LVN CIWA Assessment as well
[2017-11-17] MEDS: MULTIVITAMINS,THERAPEUTIC TABLET PO SCH (08:59)
--- NOTE | 2017-11-17 08:59 | NUR ---
Tylenol 650 mg PO given: Patient complained of 5/10 headache. Medicated patient with Tylenol 650 mg PO as ordered. Will monitor for effectiveness.
[2017-11-17] MEDS: CHOLECALCIFEROL 1,000 UNIT TABLET PO SCH (09:00)
[2017-11-17] MEDS: DIAZEPAM 5 MG TABLET PO SCH ×2 (09:00→21:10)
[2017-11-17] MEDS: ESCITALOPRAM OXALATE 10 MG TABLET PO SCH (09:00)
--- NOTE | 2017-11-17 09:59 | NUR ---
Re-assessment: Yanna Patient verbalizes relief from headache. She verbalizes that PL is now a 2 out of 10. Will continue to monitor. Addendum: 11/17/17 at 1005 by GRACIE MASON LVN Error in charting. Wrong patient.
--- NOTE | 2017-11-17 09:59 | NUR ---
Re-assessment: Tylenol Patient verbalizes relief from headache. She verbalizes that PL is now a 2 out of 10. Will continue to monitor.
[2017-11-17 12:00] VITALS: BP 139/71
--- NOTE | 2017-11-17 12:15 | NUR ---
CIWA Assessment: CIWA 12, patient continues to present with gross tremors, intermittent perspiration, anxiety, agitation, difficulty concentrating and headache. PRNs offered. Support provided. Will continue with current orders at this time.
[2017-11-17] MEDS: CLONIDINE HCL 0.1 MG TABLET PO PRN (12:27)
[2017-11-17] MEDS: IBUPROFEN 400 MG TABLET PO PRN ×2 (12:27→21:15)
--- NOTE | 2017-11-17 12:29 | NUR ---
Motrin 400 mg PO/Clonidine 0.1mg PO given: BP 161/91, Pulse 62, patient complains of 6/10 headache. Non-pharmacological interventions provided but ineffective. Medicated patient with Motrin 400 mg PO and Clonidine 0.1mg PO as ordered. Will monitor for effectiveness.
--- NOTE | 2017-11-17 13:27 | NUR ---
Re-assessment: Clonidine/Motrin Patient verbalizes relief from headache. She states that her pain level is now a 2 out of 10. BP decreased to 125/88, Pulse 65. PRN Clonidine and Motrin were effective.
[2017-11-17 16:00] VITALS: BP 136/80
--- NOTE | 2017-11-17 16:16 | NUR ---
CIWA Assessment: CIWA 10, patient continues to present with anxiety, agitation, gross tremors, headache, restlessness, intermittent perspiration, malaise, fatigue, and generalized discomfort. Offered PRNs. Oral fluids encouraged. Support provided. Will continue to monitor.
--- NOTE | 2017-11-17 19:10 | NUR ---
End of Shift Notes: Patient continues to be on 3-day Valium taper as ordered to manage symptoms related to ETOH withdrawal. VS monitored closely. No significant abnormalities noted. Withdrawal symptoms were closely monitored. Initial CIWA 14, patient presented with gross tremors, restlessness, anxiety, agitation, intermittent perspiration, gross tremors, headache and anhedonia. Medicated patient with Tylenol 650 mg PO for headache with help. Last CIWA 10. Patient verbalizes that Valium has been effective in reducing her withdrawal symptoms. Encouraged patient to attend group and activities due to self isolation. All needs met and attended. Safety precautions in place. All needs met and attended. Will continue to monitor.
--- NOTE | 2017-11-17 19:14 | NUR ---
Start of shift note Received report from day shift nurse. Pt is a 57 yo female, A+Ox4, presenting to [facility] for medically supervised ETOH withdrawal. Pt noted with restlessness, anxiety, agitation, and headache. Pt has HX of HTN, hyperlipidemia, sleep apnea, anxiety, and depression which will be monitored during shift. Pt is on 3 day Valium taper, tolerated well. Respirations even and unlabored. Will continue to monitor.
[2017-11-17 20:11] VITALS: BP 142/70
--- NOTE | 2017-11-17 20:11 | NUR ---
CIWA Assessment CIWA: 8. Pt noted with fine tremors, sweat on brow, anxiety, headache, and agitation. Respirations even and unlabored. Will continue to monitor.
[2017-11-17] MEDS: LISINOPRIL 20 MG TABLET PO SCH (21:10)
[2017-11-17] MEDS: ATORVASTATIN 40 MG TABLET PO SCH (21:10)
--- NOTE | 2017-11-17 21:15 | NUR ---
PRN Motrin Pt c/o headache 07/21 and requested for PRN Motrin. Medication given and tolerated well. Will reassess within 1 HR. Will continue to monitor.
--- NOTE | 2017-11-17 22:10 | NUR ---
PRN Motrin Reassessment Medication effective. Pt expresses reduction of headache to 2/10. No s/s of ASE noted at this time. Respirations even and unlabored. Will continue to monitor.
--- NOTE | 2017-11-18 00:19 | NUR ---
V/S refused and CIWA Assessment deferred for sleep. Respirations even and unlabored. Will continue to monitor.
--- NOTE | 2017-11-18 04:24 | NUR ---
V/S refused and CIWA assessment deferred for sleep. Respirations even and unlabored. Will continue to monitor.
--- NOTE | 2017-11-18 07:00 | NUR ---
End of shift note Pt was continuously noted with restlessness, headache, anxiety, and agitation. Pt remained in room for majority of shift except to get food from kitchen. Pt remained compliant and cooperative with all aspects of treatment. Pt was given PRN Motrin @2114. Pt is on 3 day Valium taper, tolerated well. Pt slept for a total of 7 HRS. Last CIWA: 8 @2010. Respirations even and unlabored. Will endorse to day shift nurse.
[2017-11-18 08:00] VITALS: BP 135/72
--- NOTE | 2017-11-18 08:00 | NUR ---
Start of Shift Notes/CIWA Assessment: Received patient in her room. Alert and oriented x 4. Denies S/I or H/I. No AV hallucinations. She appears anxious, agitated, with gross tremors noted to BUE and sweating. She appears drowsy upon waking. CIWA 10 upon assessment. Patient is a 57 year old female admitted for ETOH withdrawal who was placed on a 3-day Valium taper as ordered. No adverse reactions noted. Educated patient on her current plan of care for the day and her medication regimen. Encouraged oral fluid intake and encouraged group participation to learn new skills to prevent relapse. Per night report, patient was given PRN Motrin for headache and continues to refuse CPAP. Last CIWA 10. Slept for 7 hours. Will continue to monitor c
[2017-11-18] MEDS: ESCITALOPRAM OXALATE 10 MG TABLET PO SCH (08:48)
[2017-11-18] MEDS: MULTIVITAMINS,THERAPEUTIC TABLET PO SCH (08:48)
[2017-11-18] MEDS: CHOLECALCIFEROL 1,000 UNIT TABLET PO SCH (08:48)
[2017-11-18 12:00] VITALS: BP 165/84
--- NOTE | 2017-11-18 12:18 | NUR ---
CIWA Assessment: CIWA 10, patient continues to present with s/s of withdrawal m/b gross tremors, anxiety, agitation, sweating, restlessness, irritability and fatigue. She was unable to participate in group and activities despite encouragement. Offered support. Will continue to monitor.
--- NOTE | 2017-11-18 12:25 | NUR ---
CIWA Assessment: CIWA 10, patient continues to present with s/s of withdrawal m/b paresthesia, anxiety, agitation, gross tremors, intermittent perspiration, increased emotional amplitude and fatigue. Patient was able to participate in group and activities despite her withdrawal symptoms. All needs met and attended. Call light in reach.
[2017-11-18] MEDS: CLONIDINE HCL 0.1 MG TABLET PO PRN (12:54)
--- NOTE | 2017-11-18 12:54 | NUR ---
Clonidine 0.1mg PO given: Patient's blood pressure 161/85, Pulse 60. Denies headache, dizziness, chest pain or blurred vision. Medicated patient with Clonidine 0.1mg PO as ordered. Will monitor for effectiveness.
--- NOTE | 2017-11-18 13:54 | NUR ---
Re-assessment: Clonidine Patient's blood pressure re-assessed. Noted with BP 135/89, Pulse 60. PRN Clonidine effective in reducing patient's blood pressure.
[2017-11-18 16:00] VITALS: BP 127/61
--- NOTE | 2017-11-18 16:19 | NUR ---
CIWA Assessment: CIWA 9, patient continues to present with gross tremors, anxiety, agitation, anhedonia, difficulty concentrating, and irritability. PRNs offered. Oral fluids encouraged.
[2017-11-18] MEDS ORDERED: DIPH50CA37 PO (16:55)
[2017-11-18] MEDS ORDERED: CLON0.1T14 PO (16:55)
[2017-11-18] MEDS ORDERED: MULT-24 PO (16:55)
[2017-11-18] MEDS ORDERED: IBUP-1953 PO (16:55)
--- NOTE | 2017-11-18 19:02 | NUR ---
End of Shift Notes: Patient completed her 3-day Valium as ordered. No adverse reactions noted. VS monitored closely. Noted with elevated blood pressure at 1254, requiring patient to be medicated with Clonidine 0.1mg PO with help. Withdrawal symptoms were closely monitored. Initial CIWA 10, patient presented with gross tremors, anxiety, agitation, diaphoresis, restlessness, and generalized discomfort. Last CIWA 9. Patient verbalizes that Valium has been effective in reducing her withdrawal symptoms. Requires encouragement to attend group and activities due to self isolation. All needs met and attended. Will continue to monitor closely.
--- NOTE | 2017-11-18 19:12 | NUR ---
Start of shift note Received report from day shift nurse. Pt is a 57 yo female, A+Ox4, presenting to [facility] for medically supervised ETOH withdrawal. Pt noted with restlessness, anxiety, and agitation. Pt has HX of HTN, sleep apnea, hyperlipidemia, anxiety, and depression which will be monitored during shift. Pt has completed 3 day Valium taper, tolerated well, and is due for discharge tomorrow. Respirations even and unlabored. Will continue to monitor.
[2017-11-18 20:10] VITALS: BP 137/62
--- NOTE | 2017-11-18 20:10 | NUR ---
CIWA Assessment CIWA: 6. Pt noted with fine tremors, sweat on brow, anxiety, and agitation. Respirations even and unlabored. Will continue to monitor.
[2017-11-18] MEDS: LISINOPRIL 20 MG TABLET PO SCH (20:51)
[2017-11-18] MEDS: ATORVASTATIN 40 MG TABLET PO SCH (20:51)
--- NOTE | 2017-11-19 00:15 | NUR ---
V/S refused and CIWA assessment deferred for sleep. Respirations even and unlabored. Will continue to monitor.
--- NOTE | 2017-11-19 04:11 | NUR ---
V/S refused and CIWA assessment deferred for sleep. Respirations even and unlabored. Will continue to monitor.
--- NOTE | 2017-11-19 07:00 | NUR ---
End of shift note Pt was continuously noted with restlessness, agitation, and anxiety. Pt remained in room for majority of shift except to get food from kitchen. Pt remained cooperative and complaint with all aspects of treatment. Pt was not given any PRN medications during shift. Pt has completed 3 day Valium taper, tolerated well, and is due for discharge today. Pt slept for a total of 8 HRS. Last CIWA: 6 @2009. Respirations even and unlabored. Will endorse to day shift nurse.
--- NOTE | 2017-11-19 07:30 | NUR ---
Start of Shift Last CIWA 6 at 1999. Pt completed 3 day Valium taper. Pt awake A&O x4, sitting up in her chair watching TV. Pt presents with anxiety, restlessness, fine bilateral hand tremors, fatigue, generalized discomfort. Pt schedule for discharge to [facility]. Fall precautions and all safety measures in place. Side rails up x2. Call light functioning and within reach. All needs attended and met. Will continue to assess for withdrawal symptoms.
[2017-11-19 08:00] VITALS: BP 156/81
--- NOTE | 2017-11-19 08:00 | NUR ---
CIWA 6- Pt presents with anxiety, restlessness, fine bilateral hand tremors. She is nervous about her discharge today.
[2017-11-19] MEDS: MULTIVITAMINS,THERAPEUTIC TABLET PO SCH (08:32)
[2017-11-19] MEDS: ESCITALOPRAM OXALATE 10 MG TABLET PO SCH (08:33)
[2017-11-19] MEDS: CHOLECALCIFEROL 1,000 UNIT TABLET PO SCH (08:33)
--- NOTE | 2017-11-19 09:40 | NUR ---
Discharge note Patient has been discharged from [facility] on 11/19/17 at 0937. Pt is in stable condition, vitals within normal limits. Denies suicidal and homicidal ideations at this time. All documentation has been completed, paperwork signed and dated. Pt left with all of her belongings, medications and prescriptions. has been notified.
== END 2017-11-19 09:37 | DRG 895 ==
LOC: SRC 14:30
PROVIDERS: ADMIT Family Medicine Addiction Medicine; ATTEND Internal Medicine
PROC: HZ2ZZZZ Detoxification Services for Substance Abuse Treatment (ICD-10-PCS; principal; 2017-11-14)
PROC: HZ31ZZZ Individual Counseling for Substance Abuse Treatment, Behavioral (ICD-10-PCS; 2017-11-16)
DX: F10.230 Alcohol dependence with withdrawal, uncomplicated (principal); F33.2 Major depressive disorder, recurrent severe without psychotic features; Y90.7 Blood alcohol level of 200-239 mg/100 ml; Z81.1 Family history of alcohol abuse and dependence; F17.210 Nicotine dependence, cigarettes, uncomplicated; E78.5 Hyperlipidemia, unspecified; F41.9 Anxiety disorder, unspecified; Z90.710 Acquired absence of both cervix and uterus; E78.00 Pure hypercholesterolemia, unspecified; I10 Essential (primary) hypertension
CPT/HCPCS: 36415; 80307; 83735; 85025; 86580; 86592; 86705; 86803; 87340; 87806; G0480; Q0163

== ENCOUNTER 2018-03-21 15:04 | Inpatient (IN) | payer BC, OTHER ==
[~2018-03-21] VITALS: Ht 157.5 cm; Wt 89.8 kg
[2018-03-21 14:20] VITALS: BP 119/57
--- NOTE | 2018-03-21 14:20 | NUR ---
Pre-Admission Asssessment: Patient is a 57 year old female presenting to [facility] for medically managed withdrawal from ETOH. Patient states she has been drinking 288 oz of beer and 150mL of vodka/day for the past month. Last drink of 12 oz of beer and 50mL of vodka approximately 30 minutes before admission. Patient is moderately intoxicated but is able to answer admission questions appropriately. She is disheveled and unkempt. Calm, polite, and cooperative with assessment. Denies seizure history. Allergic to penicillin. Medical/Psych history includes Anxiety, Depression, HTN, Hyperlipidemia, Sleep apnea. Denies SI/HI. Explained policies and procedures, patient verbalized understanding. Appropriate for admission to the unit.
[~2018-03-21 15:04] MED LIST changes: -BACL20TA PO; +CLON0.1T14 PO; +IBUP-1953 PO; +MULT-24 PO
[2018-03-21] MEDS ORDERED: MAGNESIUM HYDROXIDE 30 ML LIQUID UDC PO PRN (15:45)
[2018-03-21] MEDS ORDERED: DIAZEPAM 10 MG TABLET PO PRN ×2 (15:45)
[2018-03-21] MEDS ORDERED: LOPERAMIDE HCL 2 MG CAPSULE PO PRN ×2 (15:45)
[2018-03-21] MEDS ORDERED: ONDANSETRON 4 MG/2 ML VIAL IM PRN (15:45)
[2018-03-21] MEDS ORDERED: IBUPROFEN 600 MG TABLET PO PRN (15:45)
[2018-03-21] MEDS ORDERED: THIAMINE HCL 200 MG/2 ML VIAL IM ONE (15:45)
[2018-03-21] MEDS ORDERED: ACETAMINOPHEN 325 MG TABLET PO PRN (15:45)
[2018-03-21] MEDS ORDERED: MIRALAX 17 GM POWD.PACK PO PRN (15:45)
[2018-03-21] MEDS ORDERED: CLONIDINE HCL 0.1 MG TABLET PO PRN (15:45)
[2018-03-21] MEDS ORDERED: ONDANSETRON ODT 4 MG TAB.RAPDIS SL PRN (15:45)
[2018-03-21] MEDS ORDERED: LORAZEPAM 2 MG/1 ML VIAL IM PRN (15:45)
[2018-03-21] MEDS ORDERED: MAG HYDROX/AL HYDROX/SIMETH 30 ML LIQUID UDC PO PRN (15:45)
[2018-03-21] MEDS ORDERED: diphenhydrAMINE 50 MG CAPSULE PO PRN (15:45)
[2018-03-21] MEDS ORDERED: DIAZEPAM 5 MG TABLET PO PRN (15:45)
[2018-03-21 16:00] VITALS: BP 122/64
--- NOTE | 2018-03-21 16:30 | NUR ---
START OF SHIFT Received patient awake, alert, and oriented x4 lying in bed watching TV. Patient is a 57 year old female newly admitted for medically supervised detox from alcohol with secondary diagnoses of anxiety, depression, HTN, sleep apnea, and hyperlipidemia. Per endorsement, patient was previously here at [facility] two other times and has been to 3 other treatment centers. Patient denies suicidal ideation, but is known to be depressed. Patient is allergic to penicillin. CIWA score is deferred at admission as she recently drank some alcohol before coming in. HOB and bilateral side rails raised. Bed is in a low position with wheels locked. All safety measures in place. Call light is functional and within reach. Will continue to monitor.
--- NOTE | 2018-03-21 16:30 | NUR ---
Admission Patient is a 57 year old female presenting to [facility] for medically managed withdrawal from ETOH (beer and vodka). VS: BP 119/57, P 73, RR 15, Temp 98.4, SpO2 95% on RA, pain 7/10 (headache). Allergic to penicillin. Patient is currently moderately intoxicated as she just drank 30 min before admission. CIWA deferred due to intoxication status. She is calm, polite, and cooperative with assessment and able to answer admission questions appropriately. She is disheveled and unkempt with poor hygiene. Patient smells of alcohol. Substance Use History 1.ETOH-Beer: 24 of the 12 oz cans of beer per day x 1 month. Patient started drinking at 14 yo and has been drinking daily off since 18 years old. Last drink 12 oz 30 min before admission. 2.ETOHVodka: 150 ml/day x 1 month. Patient started drinking at 14 yo and has been drinking daily off since 18 years old. Last drink 50 mL 30 min before admission. Withdrawal Patient is currently moderately intoxicated and is not exhibiting s/sx of withdrawal. Per patient, typical withdrawal includes anxiety, depression, restlessness, chills, hot flashes. Patient denies hx of seizure, withdrawal induced delirium or cardiac complications. Patient denies blackouts Medical/Psych History 1.Anxiety: patient does not take home medications 2.Depression: prescribed Lexapro 20mg/day and has been taking for approximately 10 years 3.Sleep apnea: Patient uses CPAP at home. 4.HTN: Patient takes Lisinopril 20 mg/day and has been taking for approximately 10 years 5.Hyperlipidemia: Patient takes Lisinopril 80 mg/day Patients psychiatrist is Dr. Joaquín Menjivar and PCP is Dr. Fabrice Gonzalez. She denies SI/HI at this time or any history of SI or 5150. Treatment History Patient states that she has been in treatment 5 times, the most recent being at [facility] in 11/14/17-11/19/17 and 12/07/17-12/13/17. Patient is not able to recall information about the other treatment centers. After her last admission to [facility], she discharged to [facility]. Motivation Patient states that she drinks to relieve anxiety and depression, but that alcohol ends up increasing her anxiety and depression and causes her to drink even more. 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 Patient states that the stress of working time study clerk and caring for her parents has led her to relapse a month ago. In addition, her son was recently arrested which has increased her stress and worry. Patient states that drinking has affected her work performance as well as her attendance at work. She decided to get sober today because she is concerned that she will be fired soon. I texted my boss to let her know I wouldnt be at work and it took her a really long time to get back to me. I just know shes talking to HR about what to do with me. Patient is hoping that getting sober will save her job. Patient would like to go to residential treatment after detox, preferably in [facility] where she lives. After RTC she will return home. Patient education provided regarding plan of care and policies and procedures. Body check done, skin intact. Dr. Narayan seen and evaluated the patient. Patient will start on a 3-Day Valium taper tomorrow with PRNs today to manage s/sx of withdrawal. Will continue to monitor closely. Addendum: 03/22/18 at 0759 by ALISHA SALMERON RN Correction: Patient has been drinking daily off and on since 18 years old
[2018-03-21] MEDS: FOLIC ACID 1 MG TABLET PO SCH (16:40)
[2018-03-21] MEDS: MULTIVITAMINS,THERAPEUTIC TABLET PO SCH (16:40)
[2018-03-21] MEDS: ESCITALOPRAM OXALATE 10 MG TABLET PO SCH (16:56)
[2018-03-21 17:02] LABS: *AMPHETAMINE, URINE NEGATIVE (NEGATIVE); *BARBITURATE, URINE NEGATIVE (NEGATIVE); *CANNABINOID, URINE NEGATIVE (NEGATIVE); *COCCAINE, URINE NEGATIVE (NEGATIVE); *OPIATE, URINE NEGATIVE (NEGATIVE); *PHENCYCLIDINE SCREEN,URINE NEGATIVE (NEGATIVE)
--- NOTE | 2018-03-21 17:42 | NUR ---
PRN MOTRIN ADMINISTRATION Patient reported having a headache at a pain level of 5 out of 10 and requested pain medication. PRN Motrin 600 mg given per MD orders and patient request. Will continue to monitor.
[2018-03-21 18:16] LABS: BASOPHILS % (AUTO) 1.2 % (0.0-2.0); EOSINOPHILS # (AUTO) 0.1 K/uL (0.0-0.7); EOSINOPHILS % (AUTO) 2.8 % (0.0-7.0); HEMATOCRIT 41.2 % (31.2-41.9); HEMOGLOBIN 14.1 g/dL (10.9-14.3); LYMPHOCYTES % (AUTO) 48.5 % (20.5-51.5); MEAN CORPUSCULAR HGB CONC 34 g/dL (32.3-35.6); MEAN CORPUSCULAR VOLUME 99.2 fL (75.5-95.3); MONOCYTES # (AUTO) 0.3 K/uL (2.0-10.0); NEUTROPHILS # (AUTO) 1.6 K/uL (1.8-8.9); NEUTROPHILS % (AUTO) 39.5 % (38.5-71.5); PLATELET COUNT (AUTO) 251 K/uL (179-408); RED BLOOD CELL COUNT(AUTO) 4.15 MIL/uL (3.63-4.92); WHITE BLOOD COUNT (AUTO) 4.1 K/uL (3.8-11.8)
--- NOTE | 2018-03-21 18:42 | NUR ---
PRN MOTRIN REASSESSMENT Patient reported having relief from headache and pain level is now manageable at a 2 out of 10. PRN Motrin noted to be effective.
[2018-03-21 19:08] LABS: BILIRUBIN,TOTAL 0.3 mg/dL (0.2-1.0); CREATININE 0.8 mg/dL (0.6-1.3); MAGNESIUM 2.1 mg/dL (1.8-2.4); POTASSIUM 3.9 mmol/L (3.5-5.1); TOTAL PROTEIN, SERUM 6.8 g/dL (6.4-8.2)
[2018-03-21 19:23] LABS: THYROID STIMULATING HORMONE 4.063 mIU/mL (0.358-3.740)
[2018-03-21 20:00] VITALS: BP 117/55
[2018-03-21] MEDS ORDERED: PATIENT MAY USE OWN MED- MD OK PO SCH (21:00)
[2018-03-21] MEDS: ATORVASTATIN 40 MG TABLET PO SCH (21:51)
[2018-03-21] MEDS: HYDROXYZINE PAMOATE 25 MG CAPSULE PO PRN (21:56)
--- NOTE | 2018-03-21 21:56 | NUR ---
PRN VISTARIL ADMINISTRATION Patient reported having significant anxiety causing her to have difficulty staying asleep. PRN Vistaril administered per MD orders and patient request. Will continue to monitor.
--- NOTE | 2018-03-21 22:56 | NUR ---
PRN VISTARIL REASSESSMENT Patient was noted lying in bed with eyes closed and even, unlabored respirations. PRN Vistaril was noted to be effective. Will continue to monitor closely.
[2018-03-22] VITALS: BP 147/69
--- NOTE | 2018-03-22 04:10 | NUR ---
VITAL SIGNS REFUSED Patient noted lying in bed with eyes closed and even, unlabored respirations. Vital signs refused. HOB and bilateral side rails up. Bed is in a low position with wheels locked. Call light is functional and within reach. Will continue to monitor.
--- NOTE | 2018-03-22 07:26 | NUR ---
END OF SHIFT Patient is noted lying in bed with eyes closed and even, unlabored respirations. Patient is a 57 year old female newly admitted for medically supervised detox from alcohol with secondary diagnoses of anxiety, depression, HTN, sleep apnea, and hyperlipidemia. During the shift, the patient reported having a headache and was given Motrin and was effective. The patient also reported having anxiety and was given Vistaril. Patient was noted being anxious, restless, and depressed. Last CIWA was 6 taken at 0000 upon waking. Patient slept for about 10.75 hours during the night. HOB is flat and bilateral side rails raised for safety. All safety measures are in place. Call light is functional and within reach. Endorsed to oncoming AM nurse.
[2018-03-22 08:00] VITALS: BP 168/73
--- NOTE | 2018-03-22 08:02 | NUR ---
START OF SHIFT NOTE Received report from night nurse, 57 year old female admitted for ETOH withdrawal and new order to start on Valium taper today. Per endorsement patient was given PRN Motrin, last CIWA score was 6, slept for 10 hours. Patient presented with flat facial expression, anxiety, agitation, restlessness, bilateral hand tremors. Patient due for her scheduled medications. Patient denies any SI/HI. Will cont with plan of care.
[2018-03-22] MEDS: FOLIC ACID 1 MG TABLET PO SCH (08:33)
[2018-03-22] MEDS: ESCITALOPRAM OXALATE 10 MG TABLET PO SCH (08:33)
[2018-03-22] MEDS: LISINOPRIL 20 MG TABLET PO SCH (08:33)
[2018-03-22] MEDS: MULTIVITAMINS,THERAPEUTIC TABLET PO SCH (08:33)
[2018-03-22] MEDS: THIAMINE HCL 100 MG TABLET PO SCH (08:33)
[2018-03-22] MEDS: DIAZEPAM 5 MG TABLET PO SCH ×3 (08:33→21:26)
[2018-03-22] MEDS: CHOLECALCIFEROL 1,000 UNIT TABLET PO SCH (08:34)
[2018-03-22] MEDS ORDERED: TUBERCULIN,PURIF.PROT.DERIV. 5 TU/0.1 ML TEST ID ONE (09:00)
[2018-03-22] MEDS ORDERED: 3 DAY TAPER OF VALIUM-SERENITY PROTOCOL PO PRN (09:00)
--- NOTE | 2018-03-22 10:35 | NUR ---
Therapist prompted client to attend group therapy.
[2018-03-22 12:00] VITALS: BP 137/98
[2018-03-22 16:00] VITALS: BP 144/78
--- NOTE | 2018-03-22 19:28 | NUR ---
END OF SHIFT NOTE Gave report to night nurse, 57 year old female admitted for ETOH withdrawal and started on Valium taper tolerating well. During shift patient refused PPD skin test offered x3 risk and benefits explained. MD notified. Patient presented with flat facial expression, light headed, anxiety, irritability, restlessness, bilateral hand tremors. Patient received her scheduled medications. No PRN'S were given. Patient encouraged to participates in therapy sessions. Encourage PO fluids as tolerated. Vital signs WNL. Last CIWA score was at 1600. Patient denies any SI/HI. All needs attended. Endorse patient to night nurse in stable condition.
--- NOTE | 2018-03-22 19:30 | NUR ---
Start of shift note patient is a 57 year old female admitted on 03/21/18 for medically supervised ETOH withdrawal. Patient is on a 5 day Valium taper started on 03/22/17. patients last CIWA was 10. Per endorsement patient had no PRN medications during this shift. Pt has been complaint with treatment program. Upon rounds pt was noted in room watching tv she was AOx4, she seemed withdrawn and depressed. Explain plan of care and she verbalized understanding. Breathing is even and unlabored with no s/s of distress. Safety measures in place, bed locked in low position, side rails up x2, and call light within reach. Will continue to monitor.
[2018-03-22 20:00] VITALS: BP 142/71
[2018-03-22] MEDS: HYDROXYZINE PAMOATE 25 MG CAPSULE PO PRN (21:26)
--- NOTE | 2018-03-22 21:26 | NUR ---
PRN Vistaril Patient is presenting with anxiety and agitation. Administered PRN Vistaril and patient tolerated well and will continue to monitor.
[2018-03-22] MEDS: ATORVASTATIN 40 MG TABLET PO SCH (21:28)
--- NOTE | 2018-03-22 21:32 | NUR ---
PRN Trazodone Pt verbalized difficulty falling asleep, administered PRN Trazodone and pt tolerated well. Will continue to monitor. Safety measures in place. Addendum: 03/23/18 at 0237 by VIDYA CANNON RN Wrong patient medication administration documented.
--- NOTE | 2018-03-22 22:26 | NUR ---
PRN Vistaril Reassessment Pt is in bed resting watching tv, breathing even and unlabored. Pt stated she felt better and that medication was effective. Safety measures in place and will continue to monitor.
--- NOTE | 2018-03-22 22:32 | NUR ---
RDUY Trazodone Reassessment Pt is in bed resting with eyes closed, breathing is even and unlabored. Medication noted to be effective and will continue to monitor. Addendum: 03/23/18 at 0237 by VIDYA CANNON RN Wrong patient medication administration documented.
--- NOTE | 2018-03-23 07:18 | NUR ---
End of shift note Patient is a 57 year old female admitted on 03/21/18 for medically supervised ETOH withdrawal. Patient is on a 5 day Valium taper started on 03/22/17. Patients last CIWA was 10. Patient is on fall and seizure precautions. Pt had PRN Vistaril during this shift. Pt was provided with SCD application, pt verbalized understanding. Pt was compliant with plan of care. Pt was noted to be depressed. Pt slept for 9 hours and had a total intake of 1,380 ml. Pt voided x3 and had no bowel movement during this shift. Pt continues to experience withdrawal s/s of anxiety, agitation, and sweats. Safety measures in place, bed locked in low position, side rails up x2, and call light within reach. Will endorse to day shift.
--- NOTE | 2018-03-23 07:30 | NUR ---
START OF SHIFT Endorse rcvd from ongoing nurse, client is in bed, in high fowlers position, a/o x 4, she appears disheveled, dark circles under eyes, dry lips, and avoidant gaze. Client presents with depressed mood, flat affect, tremors, and difficulty concentrating. Client reports depression, poor appetite, anhedonia, cold/chills, body aches, restless legs, and difficulty thinking clearly. Encouraged client to attend group therapy to learn skills to maintain sober. PRN Vistaril 50mg PO for anxiety, noted effective. Client slept 9 hrs. Client is on 2nd of 3 day Valium taper. Last CIWA 10 @ 1999. [place] precautions. Side rails x 2 up/padded. Call light within reach. Will continue to monitor.
[2018-03-23 08:06] LABS: HEPATITIS B SURFACE AG Negative (Negative)
[2018-03-23 08:43] VITALS: BP 146/97
[2018-03-23] MEDS: THIAMINE HCL 100 MG TABLET PO SCH (08:48)
[2018-03-23] MEDS: CHOLECALCIFEROL 1,000 UNIT TABLET PO SCH (08:48)
[2018-03-23] MEDS: LISINOPRIL 20 MG TABLET PO SCH (08:48)
[2018-03-23] MEDS: DIAZEPAM 5 MG TABLET PO SCH ×2 (08:48→21:36)
[2018-03-23] MEDS: FOLIC ACID 1 MG TABLET PO SCH (08:48)
[2018-03-23] MEDS: ESCITALOPRAM OXALATE 10 MG TABLET PO SCH (08:48)
[2018-03-23] MEDS: MULTIVITAMINS,THERAPEUTIC TABLET PO SCH (08:48)
--- NOTE | 2018-03-23 08:48 | NUR ---
WA 14 Client presents with depressed mood, flat affect, tremors, and difficulty concentrating. Client reports depression, poor appetite, nausea, anhedonia, cold/chills, body aches, restless legs, and difficulty thinking clearly. Schedule Valium 5mg Po administered, paxton mitch and saltine crackers at bedside, client decline Zofran at tis time. Call light within reach.
--- NOTE | 2018-03-23 09:23 | NUR ---
Therapist prompted client to attend all group therapy sessions.
--- NOTE | 2018-03-23 09:29 | NUR ---
Therapist prompted client to attend group therapy.
[2018-03-23 12:00] VITALS: BP 129/72
--- NOTE | 2018-03-23 12:30 | NUR ---
CIWA 13 Client reports agitation, anhedonia, anxiety, cold/chills, clammy skin, depression, difficulty concentrating, difficulty thinking clearly, fine tremors, and fatigue. Non-pharmacologic measures rendered. Will continue to monitor. Call light within reach.
--- NOTE | 2018-03-23 16:30 | NUR ---
COWS 13 Client continues to presents with anxiety, tremors felt, irritability, stomach cramps, poor appetite, and fatigue. Non-pharmacologic measures rendered, will continue to monitor. Call light within reach.
[2018-03-23 16:51] VITALS: BP 118/57
--- NOTE | 2018-03-23 19:36 | NUR ---
END OF SHIFT Endorse client to incoming nurse, client is in room, a/o x 4, client continues to presents with anxiety, tremors felt, irritability, yawning, stomach cramps, poor appetite, and fatigue. Client denies N/V/D. Client is on 2nd of 3 day Valium taper. Last CIWA 13 @ 1600. Client is compliant with group therapy. Consumes 50% of meals. Adequate PO fluid intake 1800mL, void x 5. Call light within reach.
--- NOTE | 2018-03-23 19:40 | NUR ---
Start of shift note Patient is a 57 year old female admitted on 03/21/18 for medically supervised ETOH withdrawal. Patient is on a 5 day Valium taper started on 03/22/17. Patients last CIWA was 13. Per endorsement patient had no PRN medications during this shift. Pt has been complaint with treatment program and showered today. Upon rounds pt was noted in room watching tv, she is AOx4. Pt continues to present with anxiety, agitation, and some nausea. Pt did not have emesis present and did not want any PRN medication, alternative interventions were placed. Pt states she feels better and nausea has subsided. Pt is breathing is even and unlabored with no s/s of distress. Safety measures in place, bed locked in low position, side rails up x2, and call light within reach. Will continue to monitor.
[2018-03-23 20:00] VITALS: BP 127/64
[2018-03-23] MEDS: ATORVASTATIN 40 MG TABLET PO SCH (21:36)
[2018-03-23] MEDS: HYDROXYZINE PAMOATE 25 MG CAPSULE PO PRN (21:36)
--- NOTE | 2018-03-23 21:36 | NUR ---
PRN Vistaril Patient is presenting with anxiety and agitation. Administered PRN Vistaril and patient tolerated well and will continue to monitor. pt is breathing even and unlabored. Safety measures in place and call light within reach.
--- NOTE | 2018-03-23 22:36 | NUR ---
PRN Vistaril Reassessment Pt is resting in bed with eyes closed, breathing even and unlabored. Medication noted to be effective. Safety measures in place and will continue to monitor.
--- NOTE | 2018-03-24 07:18 | NUR ---
End of shift note Patient is a 57 year old female admitted on 03/21/18 for medically supervised ETOH withdrawal. Patient is on a 5 day Valium taper started on 03/22/17. Patients last CIWA was 9. Pt had PRN Vistaril during this shift. Pt was compliant with plan of care. Pt continues to present with nausea, no visible tremors, sweats, anxiety and agitation. Pt slept for 10 hours and had a total intake of 1,380ml. Pt voided x3 and had no bowel movements during this shift. Pt was noted to be depressed and had a flat affect. Pt is breathing is even and unlabored with no s/s of distress. Safety measures in place, bed locked in low position, side rails up x2, and call light within reach. Will endorse to day shift.
--- NOTE | 2018-03-24 07:31 | NUR ---
START OF SHIFT Endorse rcvd from ongoing nurse, client is sitting in bed, a/o x 4, she presents with depressed mood, flat affect, dry lips, avoidant gaze, tremors, and difficulty concentrating. Client reports inability to sleep, fatigue, depression, poor appetite, abdominal cramps, cold/chills, restless legs, and difficulty thinking clearly. Encourage client to increase PO fluid intake as tolerated to facilitate detox. PRN Vistaril 50mg for anxiety, noted effective. Client slept 7 hrs. Client is on last of 3 day Valium taper. Last CIWA 9 @ 1999. [place] precautions. Side rails x 2 up/padded. Call light within reach. Will continue to monitor.
[2018-03-24 08:23] VITALS: BP 158/92
[2018-03-24] MEDS ORDERED: DIAZEPAM 5 MG TABLET PO SCH (09:00)
[2018-03-24] MEDS: CHOLECALCIFEROL 1,000 UNIT TABLET PO SCH (09:08)
[2018-03-24] MEDS: THIAMINE HCL 100 MG TABLET PO SCH (09:08)
[2018-03-24] MEDS: ESCITALOPRAM OXALATE 10 MG TABLET PO SCH (09:08)
[2018-03-24] MEDS: MULTIVITAMINS,THERAPEUTIC TABLET PO SCH (09:08)
[2018-03-24] MEDS: LISINOPRIL 20 MG TABLET PO SCH (09:09)
[2018-03-24] MEDS: FOLIC ACID 1 MG TABLET PO SCH (09:10)
--- NOTE | 2018-03-24 09:10 | NUR ---
[facility] 14 Client reports abdominal cramps, agitation, anhedonia, anxiety, appetite loss, chills, clammy skin, depression, difficulty concentrating, difficulty thinking clearly, emotional volatility, fatigue, fine tremors, flushed facial skin, restless legs, and sweating, Scheduled Valium 5mg PO administered. Call light within reach.
[2018-03-24 12:00] VITALS: BP 152/85
--- NOTE | 2018-03-24 12:00 | NUR ---
JEFFREYWA 13 Client presents with agitation, anhedonia, anxiety, cold/chills, clammy skin, depression, and difficulty concentrating, Non-pharmacologic measures rendered. Will continue to monitor. Call light within reach.
[2018-03-24] MEDS ORDERED: CLON0.1T14 PO (13:11)
[2018-03-24] MEDS ORDERED: ESCI10TA PO (13:11)
[2018-03-24] MEDS ORDERED: HYDR-3895 PO (13:11)
[2018-03-24 16:00] VITALS: BP 149/86
--- NOTE | 2018-03-24 16:00 | NUR ---
CIWA 8 Client continues to present with fine tremors, sweats, anxiety, agitation, irritability, poor appetite, and difficulty concentrating. Non-pharmacologic measures rendered. Call light within reach.
--- NOTE | 2018-03-24 19:03 | NUR ---
END OF SHIFT Endorse client to incoming nurse, client is in room, a/o x 4, client continues to presents with anxiety, agitation, tremors, irritability, poor appetite, and difficulty concentrating. Client denies N/V/D, SI/HI. Client completed 5 day Valium taper. Last CIWA 8 @ 1600. Client is schedule for discharge to [facility] tomorrow am for continuity of treatment. Client is compliant with group therapy. Consumes 50% of meals. Adequate PO fluid intake 1900mL, void x 3, stool x 1. Call light within reach.
--- NOTE | 2018-03-24 19:30 | NUR ---
START OF SHIFT Received patient awake, alert, and oriented x 4 sitting up in bed with HOB and bilateral side rails raised watching TV. Patient is a 57 year old female newly admitted for medically supervised detox from alcohol with secondary diagnoses of anxiety, depression, HTN, sleep apnea, and hyperlipidemia. Per endorsement, patient has completed a 3 day Valium taper today and is to be discharged tomorrow. No PRNs were administered by AM nurse. Upon assessment, patient presented with restlessness, anxiety, and fine tremors. Last CIWA score is 8. Patient has no requests at this time. Bed is in a low position with wheels locked. Call light is functional and within reach. All safety measures in place. Will continue to monitor.
[2018-03-24 20:00] VITALS: BP 125/67
[2018-03-24] MEDS: ATORVASTATIN 40 MG TABLET PO SCH (20:47)
--- NOTE | 2018-03-25 | NUR ---
VITAL SIGNS REFUSED Patient is noted lying in bed with eyes closed and even, unlabored respirations. Vital signs refused. HOB and bilateral side rails raised. Will continue to monitor.
--- NOTE | 2018-03-25 07:06 | NUR ---
END OF SHIFT Patient is noted lying in bed with eyes closed and even, unlabored respirations. Patient is a 57 year old female newly admitted for medically supervised detox from alcohol with secondary diagnoses of anxiety, depression, HTN, sleep apnea, and hyperlipidemia. During the shift, the patient did not report any negative symptoms and was only noted with mild anxiety and restlessness. No PRNs were given. Last CIWA was 7 taken at 2000. Patient slept for about 9 hours during the night. HOB is flat and bilateral side rails raised. All safety measures in place. Call light is functional and within reach. Endorsed to oncoming AM nurse.
--- NOTE | 2018-03-25 07:30 | NUR ---
Start of shift note; Received report from night nurse. Patient is a 57 year old female admitted on 03/21/18 for ETOH withdrawal. Patient completed Valium taper without any adverse reactions. Patient is AOX4, appears anxious, complaining of insomnia and generalized discomfort. Patient is medically cleared for discharge today per MD. All safety measures secured. Will continue to monitor patient.
[2018-03-25 08:00] VITALS: BP 156/77
[2018-03-25 08:08] VITALS: BP 157/77
[2018-03-25] MEDS: CHOLECALCIFEROL 1,000 UNIT TABLET PO SCH (08:08)
[2018-03-25] MEDS: MULTIVITAMINS,THERAPEUTIC TABLET PO SCH (08:08)
[2018-03-25] MEDS: FOLIC ACID 1 MG TABLET PO SCH (08:08)
[2018-03-25] MEDS: LISINOPRIL 20 MG TABLET PO SCH (08:08)
[2018-03-25] MEDS: ESCITALOPRAM OXALATE 10 MG TABLET PO SCH (08:09)
[2018-03-25] MEDS: THIAMINE HCL 100 MG TABLET PO SCH (08:09)
--- NOTE | 2018-03-25 09:57 | NUR ---
Discharge note; Patient is AOX4, patient completed treatment without any adverse reactions. Patient is medically cleared for discharge per MD. Patient to be transferred to [facility]. All valuables, belongings and prescription given to patient. Patient left the facility at exactly 0957 on 03/25/18. Patient left in a stable condition.
== END 2018-03-25 09:57 | disposition home or self-care (01) | DRG 895 ==
LOC: SRC 15:04
PROVIDERS: ADMIT Family Medicine Addiction Medicine; ATTEND Family Medicine Addiction Medicine
PROC: HZ2ZZZZ Detoxification Services for Substance Abuse Treatment (ICD-10-PCS; principal; 2018-03-21)
PROC: HZ41ZZZ Group Counseling for Substance Abuse Treatment, Behavioral (ICD-10-PCS; 2018-03-22)
PROC: HZ31ZZZ Individual Counseling for Substance Abuse Treatment, Behavioral (ICD-10-PCS; 2018-03-23)
DX: F10.230 Alcohol dependence with withdrawal, uncomplicated (principal); Y90.6 Blood alcohol level of 120-199 mg/100 ml; F17.210 Nicotine dependence, cigarettes, uncomplicated; E78.5 Hyperlipidemia, unspecified; G43.909 Migraine, unspecified, not intractable, without status migrainosus; Z98.84 Bariatric surgery status; Z98.82 Breast implant status; Z81.1 Family history of alcohol abuse and dependence; Z79.899 Other long term (current) drug therapy; F32.9 Major depressive disorder, single episode, unspecified; I10 Essential (primary) hypertension; Z90.710 Acquired absence of both cervix and uterus; E78.00 Pure hypercholesterolemia, unspecified; F41.9 Anxiety disorder, unspecified; R94.6 Abnormal results of thyroid function studies
CPT/HCPCS: 36415; 70030-TC; 80307; 83690; 83735; 84443; 85025; 86592; 86705; 86803; 87340; 87806; G0480; J3411